=== PATIENT | male | born 1985 | race Caucasian/White ===

== ENCOUNTER → 2023-11-15 | Outpatient (CLI) | payer OTHER, SELFPAY ==
[2023-11-15 16:56] LABS: Pathologist Comment/Body Fluid May follow
[2023-11-15 17:26] LABS: Body Fluid Mononuclear WBC # 3.911 10^3/uL; Body Fluid Mononuclear WBC % 19.7 %; Body Fluid Polynuclear WBC # 15.967 10^3/uL; Body Fluid Polynuclear WBC % 80.3 %
[2023-11-15 17:44] LABS: Body Fluid Total Cells Counted 19.866 10^3/ul; White Blood Count/Body Fluid 19.878 10^3/uL
[2023-11-15 18:37] LABS: Appearance/Body Fluid CLOUDY; Auto B Fluid Analyzer BKGD Ct COUNTS W/IN LIMITS (W/IN LIMITS); Color/Body Fluid YELLOW; Red Cell Count/Body Fluid 3 /mm3; Source- Body Fluid OTHER
[2023-11-15 18:40] LABS: CRYSTALS, BODY FLUID See PATH REV
[2023-11-15 18:41] LABS: Body Fluid QC Type(s) BF1Q,BF2Q
[2023-11-15 18:42] LABS: Lymphocytes 11 %; Monocytes 12 %; Neutrophil (Segs) 77 %
[2023-11-15 18:43] LABS: Source- Body Fluid SYNOVIAL
[2023-11-16 12:17] LABS: Pathologist Review Reviewed
== END | disposition home or self-care (01) ==
LOC: LABSPEC 16:49
PROVIDERS: PCP Physician Assistant; Referring Provider Physician Assistant; Visit Provider Physician Assistant
DX: M25.562 Pain in left knee (principal); M17.12 Unilateral primary osteoarthritis, left knee
CPT/HCPCS: 87070; 87075; 87205; 89050; 89060

== ENCOUNTER → 2024-02-25 | Outpatient (CLI) | payer OTHER, SELFPAY ==
[2024-02-25 15:35] LABS: Pathologist Comment May follow
[2024-02-25 16:38] LABS: Synovial Fld Mononuclear WBC # 7.722 10^3/ul; Synovial Fld Mononuclear WBC % 46.3 %; Synovial Fld Polynuclear WBC # 8.957 10^3/uL; Synovial Fld Polynuclear WBC % 53.7 %
[2024-02-25 16:43] LABS: Erythrocyte Sedimentation Rate 5 mm/hr (0-20)
[2024-02-25 17:03] LABS: Uric Acid 6.3 mg/dL (3.5-7.2)
[2024-02-25 17:15] LABS: CRYSTALS, BODY FLUID NO CRYSTALS SEEN; Source- Body Fluid SYNOVIAL
[2024-02-25 18:23] LABS: AUTO B FLUID DILUENT BKGD CT WBC <0.1 RBC <0.01 (W<.1,R<.01); Color / Synovial Fluid Straw (Pale Yellow); Source / Synovial Fluid R KNEE
[2024-02-25 18:24] LABS: Appearance /Synovial Fluid Sl hazy (CLEAR)
[2024-02-25 18:33] LABS: RBC /Synovial Fluid 20 /mm3 (0)
[2024-02-25 18:41] LABS: Body Fluid QC Type(s) BF1,BF2
[2024-02-25 19:30] LABS: Neutrophil 75 % (0-25); Other Cell /Synovial Fluid 25 %
[2024-02-28 11:00] LABS: Pathologist Review Reviewed
== END | disposition home or self-care (01) ==
LOC: LABSPEC 15:25
PROVIDERS: PCP Physician Assistant; Referring Provider Student in an Organized Health Care Education/Training Program; Visit Provider Student in an Organized Health Care Education/Training Program
DX: M25.461 Effusion, right knee (principal)
CPT/HCPCS: 84550; 85652; 86140; 87070; 87075; 87205; 89050; 89051; 89060